=== PATIENT | male | born 1975 | race American Indian/Alaskan Native ===

== ENCOUNTER 2016-07-13 16:14 | Emergency (ER) | payer BC ==
--- NOTE | 2016-07-14 01:26 | Emergency Department Report ---
ED Male HPI - General Chief complaint: Extremity Injury, Lower Stated complaint: LUMP ON BACK OF RT THIGH/ POSS STRAIN Time Seen by Provider: 07/14/16 01:07 Source: patient Mode of arrival: Ambulatory Limitations: No Limitations - History of Present Illness Initial comments: 41-year-old male past medical history groin abscess, diabetes type 2 presents with complaint of 3-4 days of pain and swelling below scrotum. He will region. Patient denies any nausea vomiting no anal pain no fever or chills no chest pain no abdominal pain. Patient states that a few years ago he had a very similar abscess which had to be incised and drained. Patient denies any spontaneous pus drainage MD Complaint: testicle pain, genital injury Onset/Timin -: days(s) Severity: moderate Quality: sharp Consistency: constant Improves with: none Worsens with: movement swelling - Related Data Sexually active: Yes Previous Rx's Medication Instructions Recorded Last Taken Type Clindamycin [Clindamycin CAP] 300 mg PO Q6H #28 capsule 07/14/16 Unknown Rx HYDROcodone/APAP 5-325 [[place] 1 each PO Q4HR PRN #12 tablet 07/14/16 Unknown Rx 5/325] Ibuprofen [Motrin] 600 mg PO Q8H PRN #25 tablet 07/14/16 Unknown Rx Allergies Allergy/AdvReac Type Severity Reaction Status Date / Time No Known Allergies Allergy Verified 07/14/16 02:04 ED Review of Systems ROS: Stated complaint: LUMP ON BACK OF RT THIGH/ POSS STRAIN Other details as noted in HPI Constitutional: denies: chills, fever Eyes: denies: eye pain, eye discharge, vision change ENT: denies: ear pain, throat pain Respiratory: denies: cough, shortness of breath, wheezing Cardiovascular: denies: chest pain, palpitations Endocrine: no symptoms reported Gastrointestinal: denies: abdominal pain, nausea, diarrhea Genitourinary: denies: urgency, dysuria Musculoskeletal: denies: back pain, joint swelling, arthralgia Skin: denies: rash, lesions Neurological: denies: headache, weakness, paresthesias Psychiatric: denies: anxiety, depression Hematological/Lymphatic: denies: easy bleeding, easy bruising ED Past Medical Hx - Past Medical History Hx Hypertension: Yes (NO MEDS NOW) Hx Diabetes: Yes - Surgical History Additional Surgical History: CYST RIGHT HIP REMOVED. HERNIA REPAIR -CHILD - Social History Smoking Status: Former Smoker Substance Use Type: None - Medications Home Medications: Home Medications Medication Instructions Recorded Confirmed Last Taken Type Clindamycin [Clindamycin CAP] 300 mg PO Q6H #28 capsule 07/14/16 Unknown Rx HYDROcodone/APAP 5-325 [[place] 1 each PO Q4HR PRN #12 tablet 07/14/16 Unknown Rx 5/325] Ibuprofen [Motrin] 600 mg PO Q8H PRN #25 tablet 07/14/16 Unknown Rx ED Physical Exam - General Limitations: No Limitations General appearance: alert, in no apparent distress - Head Head exam: Present: atraumatic, normocephalic - Eye Eye exam: Present: normal appearance, PERRL, EOMI - ENT ENT exam: Present: mucous membranes moist - Neck Neck exam: Present: normal inspection - Respiratory Respiratory exam: Present: normal lung sounds bilaterally. Absent: respiratory distress - Cardiovascular Cardiovascular Exam: Present: regular rate, normal rhythm. Absent: systolic murmur, diastolic murmur, rubs, gallop - GI/Abdominal GI/Abdominal exam: Present: soft, normal bowel sounds - Rectal Rectal exam: Present: deferred, normal rectal tone, mass, tenderness (patient has palpable abscess adjacent and to the right side of the anal region perineal region there is no crepitus in the groin there is no evidence of significant cellulitis but there is a small area of fluctuance approximately 3 cm in diameter. There are no clinical signs of Itzel's gangrene no crepitus and scrotum or perineum, no pain inside rectal vault on digital rectal exam) - Extremities Exam Extremities exam: Present: normal inspection, full ROM, normal capillary refill - Back Exam Back exam: Present: normal inspection - Neurological Exam Neurological exam: Present: alert, oriented X3, CN II-XII intact, normal gait - Psychiatric Psychiatric exam: Present: normal affect, normal mood - Skin Skin exam: Present: warm, dry, intact, normal color. Absent: rash ED Course Vital Signs 07/13/16 07/14/16 07/14/16 17:15 01:34 05:00 Temperature 97.9 F 99.4 F 98.4 F Pulse Rate 94 H 90 Respiratory 18 18 Rate Blood Pressure 126/71 Blood Pressure 124/76 [Left] Blood Pressure [Right] O2 Sat by Pulse 99 99 Oximetry 07/14/16 07/14/16 07:11 09:04 Temperature 98.1 F 98.2 F Pulse Rate 81 74 Respiratory 18 74 H Rate Blood Pressure Blood Pressure 135/91 114/64 [Left] Blood Pressure 114/64 [Right] O2 Sat by Pulse 98 Oximetry - I & D Buttocks Type of Procedure: Complex Site: approximately 3 cm Blade Size: 11 I & D Procedure: betadine prep Progress: 3 cm perineal abscess, proximal 6 mL of lidocaine with epinephrine infiltrated into the region good local anesthesia achieved small 1.5 cm incision made directly over abscess site good amount of purulent drainage I broke up loculations with forceps approximately 4-5 mL of purulent drainage. I inserted a half-inch iodoform gauze approximately 10 cm in length and swelling in left hip externally. Gauze placed over site. Procedure tolerated well minimal bleeding minimal discomfort. ED Medical Decision Making - Lab Data Result diagrams: 07/14/16 01:44 07/14/16 01:44 - Medical Decision Making A/P: Hyperglycemia, perianal abscess 1-as per CT read perineal abscesses small in size superficial no involvement of bowel or anus. I incised and drained abscess, moderate amount of pus drainage, abscess packed with approximately 12 cm of half-inch iodoform gauze. Wound culture sent 2-patient given 600 of IV Clinda to begin antibiosis will discharge with 7 day course of clindamycin 3-referral to surgery clinic for follow-up 4-48 hour wound check in emergency room for packing removal and reassessment of abscess site area I specifically advised the patient to return to the ED if he develops fevers chills reaccumulation of abscess or any crepitus and groin region and I informed him of the specific signs and symptoms of Itzel's gangrene. Patient does not currently have Itzel's gangrene on clinical exam 5-normal saline, small dose IV insulin administered for glycemic control 6- I signed out the patient to my colleague DACIA Lira will follow-up patient's blood sugar and discharged accordingly 7- I informed Dr. Maciel before signing out the patient Critical care attestation.: If time is entered above; I have spent that time in minutes in the direct care of this critically ill patient, excluding procedure time. ED Disposition Clinical Impression: Perianal abscess Disposition: DISCHARGED TO HOME OR SELFCARE Is pt being admited?: No Does the pt Need Aspirin: No Condition: Stable Instructions: Abscess Incision and Drainage (ED), Abscess (ED) Additional Instructions: 48 hour wound check in the emergency room for packing removal and reevaluation of abscess Prescriptions: Clindamycin [Clindamycin CAP] 300 mg PO Q6H #28 capsule HYDROcodone/APAP 5-325 [[place] 5/325] 1 each PO Q4HR PRN #12 tablet PRN Reason: Pain Ibuprofen [Motrin] 600 mg PO Q8H PRN #25 tablet PRN Reason: Pain Referrals: MARIA L BURGOS MD [Staff Physician] - 3-5 Days Forms: Work/School Release Form Time of Disposition: 08:15
[2016-07-14] MEDS ORDERED: NACL ONE (01:49)
[2016-07-14 02:00] LABS: Basophils % (Auto) 0.8 % (0.0-1.8); Eosinophils % (Auto) 1.7 % (0.0-4.3); Hematocrit 44.9 % (35.5-45.6); Mean Corpuscular HGB Conc 33 % (32-34); Mean Corpuscular Hemoglobin 27 pg (28-32); Mean Corpuscular Volume 82 fl (84-94); Platelet Count 186 K/mm3 (140-440); Red Blood Count 5.51 M/mm3 (3.65-5.03); White Blood Count 9.1 K/mm3 (4.5-11.0)
[2016-07-14 02:10] LABS: BUN/Creatinine Ratio 11.25; Blood Urea Nitrogen 9 mg/dL (9-20); Calcium 9.2 mg/dL (8.4-10.2); Carbon Dioxide 27 mmol/L (22-30); Glucose 455 mg/dL (75-100)
[2016-07-14 02:11] LABS: Anion Gap 15 mmol/L; Chloride 92.9 mmol/L (98-107); Potassium 4.2 mmol/L (3.6-5.0); Sodium 131 mmol/L (137-145)
[2016-07-14] MEDS ORDERED: NACL 0.9% 1000 ML 1,000 ML IV ONE ×2 (02:33→06:22)
[2016-07-14 02:36] LABS: Alanine Aminotransferase 23 units/L (7-56); Albumin/Globulin Ratio 1.3 %; Alkaline Phosphatase 172 units/L (35-129); Bilirubin,Total 0.3 mg/dL (0.1-1.2); Total Protein 7.1 g/dL (6.3-8.2)
[2016-07-14 02:39] LABS: Bilirubin,Direct < 0.2 mg/dL (0-0.2); Bilirubin,Indirect 0.1 mg/dL
--- NOTE | 2016-07-14 05:23 | Cat Scan Report ---
FINAL REPORT PROCEDURE: CT ABDOMEN PELVIS W CON TECHNIQUE: Computerized axial tomography of the abdomen and pelvis was performed after the IV injection of iodinated nonionic contrast. HISTORY: perianal abscess ? size COMPARISON: No prior studies are available for comparison. FINDINGS: Visualized lower thorax: No significant abnormality. Liver: Normal size and attenuation. Spleen: Normal size and attenuation. Gallbladder and biliary system: Normal. Pancreas: Normal. Adrenals: Normal. Kidneys: Normal. GI tract: Normal. Lymph nodes and mesentery: Normal. Vasculature: Normal. Bladder: Normal. Reproductive organs: Normal. Peritoneum: No free fluid. Musculoskeletal structures: No significant abnormality. Other: There is a small 2.5 centimeter fluid collection in the right perianal region of the right posterior buttock. Small perianal abscess is suspected. This abuts the skin surface on this study.. IMPRESSION: There is no evidence of intestinal urinary tract obstruction. No ileus or enteritis. The appendix is normal. Tiny 2.5 millimeter right perianal fluid collection consistent with a small abscess in the subcutaneous soft tissues.
[2016-07-14] MEDS ORDERED: NORCO 5/325 PO ONE (06:46)
[2016-07-14] MEDS ORDERED: XYLOCAINE 1%/ EPI 1:100,000 INFILTRATI NR (07:00)
[2016-07-14] MEDS ORDERED: CLEOCIN 600 MG/50 mL 600 MG/50 ML BAG IV ONE (07:13)
[2016-07-14 09:05] VITALS: BP 114/64
== END 2016-07-14 10:58 | disposition home or self-care (01) ==
LOC: ED 16:14
DX: K61.0 Anal abscess (principal); I10 Essential (primary) hypertension; E11.9 Type 2 diabetes mellitus without complications; Z87.891 Personal history of nicotine dependence
CPT/HCPCS: 10061; 36415; 74177; 80048; 80074; 82140; 82550; 82805; 82962; 85025; 87116; 96361; 96365; 96375; 99284; J7030; Q9967; J1815

== ENCOUNTER 2016-07-16 14:40 | Emergency (ER) | payer BC ==
[2016-07-16 14:56] VITALS: BP 122/84
[2016-07-16] MEDS ORDERED: LEVEMIR SUB-Q ONE (16:21)
--- NOTE | 2016-07-16 16:51 | Emergency Department Report ---
HPI - General Chief Complaint: Laceration/Recheck/Suture Time Seen by Provider: 07/16/16 16:13 - HPI HPI: he is a 41-year-old male who presents to ED for abscess packing removal. Patient was here 3 days ago for an abscess and I&D was placed in by a fellow PA in the ED. Patient has had no complications since he's been here. 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 Patient denies fevers/chills/nausea/vomiting/dizziness/headache/any other problems. ED Past Medical Hx - Past Medical History Hx Hypertension: Yes (NO MEDS NOW) Hx Diabetes: Yes - Surgical History Additional Surgical History: CYST RIGHT HIP REMOVED. HERNIA REPAIR -CHILD - Social History Smoking Status: Former Smoker Substance Use Type: None - Medications Home Medications: Home Medications Medication Instructions Recorded Confirmed Last Taken Type Clindamycin [Clindamycin CAP] 300 mg PO Q6H #28 capsule 07/14/16 Unknown Rx HYDROcodone/APAP 5-325 [[place] 1 each PO Q4HR PRN #12 tablet 07/14/16 Unknown Rx 5/325] Ibuprofen [Motrin] 600 mg PO Q8H PRN #25 tablet 07/14/16 Unknown Rx Glimepiride [Amaryl] 4 mg PO DAILY #30 tablet 07/16/16 Unknown Rx Sitagliptin Phos/Metformin HCl 1 tab PO BID #40 tablet 07/16/16 Unknown Rx [Janumet 50-1,000 mg] ED Review of Systems ROS: Stated complaint: PACKING REMOVAL Other details as noted in HPI Constitutional: denies: chills, fever Eyes: denies: eye pain, eye discharge, vision change ENT: denies: ear pain, throat pain Respiratory: denies: cough, shortness of breath, wheezing Cardiovascular: denies: chest pain, palpitations Endocrine: no symptoms reported Gastrointestinal: denies: abdominal pain, nausea, diarrhea Genitourinary: denies: urgency, dysuria Musculoskeletal: denies: back pain, joint swelling, arthralgia Skin: denies: rash, lesions Neurological: denies: headache, weakness, paresthesias Psychiatric: denies: anxiety, depression Hematological/Lymphatic: denies: easy bleeding, easy bruising Physical Exam - Physical Exam Vital Signs: Vital Signs 07/16/16 14:49 Temperature 98.0 F Pulse Rate 83 Respiratory 20 Rate Blood Pressure 122/84 O2 Sat by Pulse 100 Oximetry Physical Exam: GENERAL: Alert and oriented x3, no apparent distress, Normal Gait, atraumatic. HEAD: Head is normocephalic and a-traumatic. EYES: Extra ocular muscles are intact. Pupils are equal, round, and reactive to light and accommodation. NECK: Supple. Non edematous, No carotid bruits. No lymphadenopathy or thyromegaly. LUNGS: Symetrical with respiration, No wheezing, no rales or crackles, CTAB. HEART: S1, S2 present, regular rate and rhythm without murmur, no rubs, no gallops. ABDOMEN: No organomegaly was noted,Positive bowel sounds, soft, and non- distended. . Nontender to palpation on all Quadrants, NO CVA tenderness. EXTREMITIES/MUSCULOSKELETAL: No cyanosis, clubbing, rash, lesions or edema. Full ROM bilaterally. UE/LE Pulses 2+ bilaterally. LE and UE 5+ strength bilaterally. NEUROLOGIC: No focal Deficit, Cranial nerves II through XII are grossly intact. No loss of sensation, . PSYCHIATRIC: Mood is congruent with affect, denies suicidal or homicidal ideations. SKIN: Warm and dry, No lesions, No ulceration or induration present. ED Course Vital Signs 07/16/16 14:49 Temperature 98.0 F Pulse Rate 83 Respiratory 20 Rate Blood Pressure 122/84 O2 Sat by Pulse 100 Oximetry ED Medical Decision Making - Medical Decision Making 89-year-old male presents with abscess packing removal. Patient's point of care glucose was 494, 20 units of Lantus given ED. Packing removed from perineum. no infections visualized. Wound care discussed with patient. As patient does not recall the dose of medication states [facility] pharmacy has prescriptions but he is unable to get a refill due to his recent change in relocation from [place] to [place]. [facility] pharmacy called I spoke to the pharmacist and confirmed the medication that the patient was taken. I called the medication in for Lantus, glimepiride , Janumet. Discussed the patient and take medication as prescribed. Discussed with patient to follow up with primary care physician. Patient states he has found a primary care and is in the process of waiting on his insurance so he can make an appointment. Patient understands to take his medication as prescribed. Glucose rechecked prior to discharge I&D packing removed without problems. Patient tolerated well. Abscess looks fine, no erythema, no edema. Critical care attestation.: If time is entered above; I have spent that time in minutes in the direct care of this critically ill patient, excluding procedure time. ED Disposition Clinical Impression: Wound check, abscess, Abscess packing removal Disposition: DISCHARGED TO HOME OR SELFCARE Is pt being admited?: No Does the pt Need Aspirin: No Condition: Stable Instructions: Acute Wound Care (ED) Additional Instructions: Pickup already called prescription at the pharmacy. Particular medication as prescribed. Follow-up with primary care physician. Prescriptions: Glimepiride [Amaryl] 4 mg PO DAILY #30 tablet Sitagliptin Phos/Metformin HCl [Janumet 50-1,000 mg] 1 tab PO BID #40 tablet Referrals: PRIMARY CARE, [Primary Care Provider] - 3-5 Days GEORGINA GIBSON MD [Referring] - 3-5 Days TAMMY MILES MD [Referring] - 3-5 Days MADISON KAM MD [Staff Physician] - 3-5 Days Forms: Accompanied Note, Work/School Release Form(ED) Time of Disposition: 17:11
== END 2016-07-16 17:43 | disposition home or self-care (01) ==
LOC: ED 14:40
DX: Z48.01 Encounter for change or removal of surgical wound dressing (principal); I10 Essential (primary) hypertension; E11.9 Type 2 diabetes mellitus without complications; Z87.891 Personal history of nicotine dependence
CPT/HCPCS: 82962; 96372; J1818